=== PATIENT | female | born 1990 | race Caucasian/White ===

== ENCOUNTER 2022-03-03 20:05 | Inpatient (IN) ==
[2022-03-03] MEDS ORDERED: OXYTOCIN 30 UNITS/500 ML BAG IV PRN (22:19)
[2022-03-03] MEDS ORDERED: PENICILLIN G POTASSIUM 6 MU in DEXTROSE 5% 250 ML IV STA (22:19)
[2022-03-03] MEDS: LACTATED RINGER'S 1,000 ML IV PRN ×2 (22:27→23:53)
[2022-03-03] MEDS ORDERED: ePHEDrine sulfate 50 MG/ML AMP ONE (23:12)
[2022-03-03] MEDS ORDERED: fentaNYL citrate 100 MCG/2 ML VIAL ONE (23:12)
[2022-03-03] MEDS ORDERED: BUPIVACAINE 0.25% 30 ML VIAL ONE (23:12)
[2022-03-03] MEDS ORDERED: SODIUM CHLORIDE 0.9% INJ 10 ML VIAL ONE (23:12)
[2022-03-03] MEDS ORDERED: LIDOCAINE 2%/EPINEPHRINE 1:200,000 20 ML SDV ONE (23:12)
[2022-03-03] MEDS ORDERED: fentaNYL 2MCG/ML ROPIVACAINE 1.25MG/ML 100 ML BAG EPI ONE (23:13)
[2022-03-03 23:14] LABS: Hemoglobin 13.9 g/dl (12.0-16.0); Mean Corpuscular Hemoglobin 30.8 pg (25.0-34.0); Mean Corpuscular Hgb Conc 35.6 g/dL (32.0-36.0); Mean Corpuscular Volume 86.5 fL (80.0-100.0); Mean Platelet Volume 14.1 fL (9.4-12.3); Platelet Count 171 K/uL (130-400); Platelet Estimate Normal (Normal); RDW Coefficient of Variation 13.2 % (11.5-14.5); RDW Standard Deviation 41.2 fL (36.4-46.3); Red Blood Count 4.51 M/uL (3.93-5.22); White Blood Count 17.56 K/ul (4.8-10.8)
[2022-03-03] MEDS ORDERED: ONDANSETRON INJ 2 MG/ML 2 ML VIAL IV PRN (23:25)
[2022-03-03] MEDS ORDERED: ePHEDrine sulfate 50 MG/ML AMP IV PRN (23:25)
[2022-03-03] MEDS ORDERED: fentaNYL 2MCG/ML ROPIVACAINE 1.25MG/ML 100 ML BAG EPI PRN (23:25)
[2022-03-03] MEDS ORDERED: NALOXONE HCL 0.4 MG/1 ML VIAL/CARP IV PRN (23:25)
[2022-03-03] MEDS ORDERED: NALOXONE HCL 1 MG in SODIUM CHLORIDE 0.9% 1000ML 1,000 ML IV PRN (23:25)
[2022-03-03] MEDS ORDERED: NALBUPHINE HCL INJ 10 MG/ML AMP IV PRN (23:25)
[2022-03-03] MEDS ORDERED: diphenhydrAMINE 50 MG/ML VIAL IV PRN (23:25)
--- NOTE | 2022-03-03 23:26 | Anesthesiology Consultation ---
Date of Service March 03, 2022 Assessment & Plan (1) Encounter for pre-operative examination: Chart Review Chart Review: Patient NOT seen in Pre Admission Testing and Acceptable Risk for Labor Epidural Consults Requested none History Height/Weight Height: 5 ft 2 in Weight: 67.132 kg Allergies Allergy/AdvReac Type Severity Reaction Status Date / Time No Known Allergies Allergy Verified 02/27/22 13:10 Medications Home Medications Medication Instructions Recorded Confirmed Last Taken prenat.vits,sahil,gnq-[id number] 1 tab PO DAILY 07/16/21 02/27/22 Unknown Active Medications Generic Name Dose Route Start Last Admin Trade Name Freq PRN Reason Stop Dose Admin Lactated Ringer's 1,000 mls @ 125 mls/hr 03/03/22 22:19 03/03/22 22:27 Lr IV 03/05/22 22:18 999 mls/hr .Q8H PRN Administration L&D Protocol Protocol Exercise / Class Metabolic Activity II 4-5 Yardwork/Stairs/Walk up hill Past Family History Family History Sister Thyroid disease Past Surgical History Surgical History S/P tonsillectomy S/P wisdom tooth extraction Past Anesthesia History No Hx of Anesthesia Complications and No Family Hx of Anesthesia Complications History of PONV No Hx of PONV and No Hx of Motion Sickness Social History Smoking Status: Never smoker Hx Alcohol Use: No Hx Substance Use: No Physical Exam Vital Signs Last Vital Signs Pulse 112 H 03/03/22 23:45 Resp 20 03/03/22 20:20 BP 151/91 H 03/03/22 23:43 Pulse Ox 88 L 03/03/22 23:45 Testing Laboratory Results 03/03/22 22:34
--- NOTE | 2022-03-04 01:00 | History & Physical Report ---
Date of Service March 04, 2022 Assessment & Plan (1) Supervision of normal intrauterine in primigravida: Plan: Primigravida in active labor at 40-6/7 weeks. GBS positive-we will begin penicillin prophylaxis. Epidural when requested. Anticipate vaginal . Admission and Anticipated Discharge Date Admission Date: March 03, 2022 History of Present Illness Primary Care Provider: NO PCP Patient is a 31-year-old 1 P0 female with an EDC of 02/26/2022 who presented at 40-6/7 weeks in active labor. Her cervix was 3 cm dilated upon arrival in labor and delivery and she progressed to 5 cm and 100% effaced after walking for 2 hours. She denies any rupture membranes or bloody show. has otherwise been uncomplicated. GBS is positive Allergies Allergy/AdvReac Type Severity Reaction Status Date / Time No Known Allergies Allergy Verified 02/27/22 13:10 Home Medications Medication Instructions Recorded Confirmed Type prenat.vits,sahil,ofe-[id number]-dlxbx 1 tab PO DAILY 07/16/21 02/27/22 History Patient History Surgical History S/P tonsillectomy S/P wisdom tooth extraction Family History Sister Thyroid disease Social History Smoking Status: Never smoker Hx Alcohol Use: No Hx Substance Use: No Preferred Language: Venezuelan Communication Ability: Effective Carton Catcher Required: No Beliefs That Will Affect Care: None marital status: marital status details: Gurpreet (28) [phone] Current Living Situation: Spouse Current Living Situation Comment: lives with spouse, 1 dog. current occupational status: employed current occupation: shipping and handling. Other Information That Helps Us Care for You: No Feels Safe at Home: Yes Safety Concerns: Feels Safe At This Time Review of Systems All systems reviewed & are unremarkable except as noted in HPI & below Physical Exam Constitutional: WD/WN, vitals as above Psychiatric: A+Ox3, euthymic affect Genitourinary: OB Exam Abdomen: + vertex, + estimated weight (7-8 pounds) and + regular contractions (2-4 minutes) Manual OB Exam: + cervical dilation 5 cm, + cervical effacement 100% and + station -1 OB Exam Monitor Tracing: + external FHT monitor used, + external uterine monitor used, + category I and + normal FHT variability Results & Data ([facility]) Vital Signs (Past 12 Hours) Vital Signs Temp Pulse Resp BP Pulse Ox 03/03/22 20:20 20 03/04/22 00:52 98 H 123/80 03/04/22 00:51 95 H 95 03/04/22 00:49 97 H 121/80 94 03/04/22 00:46 84 125/82 94 03/04/22 00:44 80 94 03/04/22 00:43 86 125/85 03/04/22 00:41 81 95 03/04/22 00:40 82 126/84 03/04/22 00:37 82 124/82 94 03/04/22 00:36 91 H 95 03/04/22 00:34 99 H 124/81 03/04/22 00:31 87 121/80 95 03/04/22 00:28 83 03/04/22 00:28 88 123/79 94 03/04/22 00:26 81 95 03/04/22 00:25 81 127/79 03/04/22 00:22 84 120/76 03/04/22 00:21 85 95 03/04/22 00:19 85 126/76 03/04/22 00:16 95 03/04/22 00:16 85 03/04/22 00:16 83 122/73 94 03/04/22 00:13 88 117/68 03/04/22 00:11 83 95 03/04/22 00:10 84 113/64 03/04/22 00:07 82 100/60 94 03/04/22 00:06 81 96 03/04/22 00:04 82 103/62 03/04/22 00:01 83 03/04/22 00:01 81 94/53 L 98 03/03/22 23:58 101 H 03/03/22 23:58 115/72 03/03/22 23:56 99 03/03/22 23:55 95 H 03/03/22 23:56 98 H 03/03/22 23:55 126/77 03/03/22 20:49 97.9 F 03/03/22 23:54 18 03/03/22 23:54 98.6 F 18 03/03/22 23:52 94 H 03/03/22 23:52 132/81 03/03/22 23:51 99 03/03/22 23:51 91 H 03/03/22 23:49 88 03/03/22 23:49 137/84 03/03/22 23:47 81 03/03/22 23:47 134/82 03/03/22 23:46 85 L 03/03/22 23:46 105 H 03/03/22 23:45 88 L 03/03/22 23:45 112 H 03/03/22 23:43 100 H 03/03/22 23:43 151/91 H 03/03/22 23:41 100 03/03/22 23:41 96 H 03/03/22 23:40 78 L 03/03/22 23:40 100 H 03/03/22 23:40 150/93 H 03/03/22 23:37 112 H 03/03/22 23:37 157/95 H 03/03/22 23:36 100 03/03/22 23:36 110 H 03/03/22 20:16 115 H 136/89 Coding Level of Care Code None Diagnoses Supervision of normal intrauterine in primigravida Z34.00
[2022-03-04] MEDS ORDERED: PENICILLIN G POTASSIUM 3 MU in DEXTROSE 5% 100 ML IV PRN (01:19)
[2022-03-04] MEDS ORDERED: bisacodyL 10 MG SUPP PR PRN (04:06)
[2022-03-04] MEDS ORDERED: OXYTOCIN 30 UNITS/500 ML BAG IV PRN (04:06)
[2022-03-04] MEDS ORDERED: oxyCODONE/ACETAMINOPHEN 5mg/325mg TAB PO PRN (04:06)
[2022-03-04] MEDS ORDERED: DIPHTHERIA/TETANUS/PERTUSSIS 0.5 ML SYR/VIAL IM ONE (04:06)
[2022-03-04] MEDS ORDERED: BENZOCAINE 20% AER SPR 82.5 GM CAN EXT PRN (04:06)
[2022-03-04] MEDS ORDERED: ACETAMINOPHEN 325 MG TAB PO PRN (04:06)
[2022-03-04] MEDS ORDERED: HYDROCORTISONE ACETATE 25 MG SUPP PR PRN (04:06)
--- NOTE | 2022-03-04 04:18 | Delivery Summary ---
Vaginal Delivery Summary Date of Service March 04, 2022 Vaginal Delivery Summary and 1st Degree LAC Patient is a 31-year-old G1, P0 female EDC of 02/26/2022 who presented in active labor. She requested epidural analgesia which was effective. She progressed to complete dilation and pushed effectively over intact perineum for delivery of a viable male . The infant was vigorous and crying upon delivery. After 1 minute the cord was clamped and cut. The placenta was expressed intact with a three-vessel cord. A periclitoral laceration and first-degree vaginal laceration were repaired with 3-0 chromic in usual fashion. Estimated blood loss was 200 cc. bleeding was completely controlled with fundal massage and dilute Pitocin. Mother and were doing well after delivery. [facility] [place] Vaginal Delivery Charge Delivery Type Details: and 1st Degree LAC
[2022-03-04] MEDS: IBUPROFEN 600 MG TAB PO PRN ×3 (06:19→21:28)
[2022-03-04] MEDS: DOCUSATE SODIUM 100 MG CAP PO SCH ×2 (07:27→21:28)
[2022-03-04] MEDS: PRENATAL VITAMIN 1 TAB PO SCH (07:27)
--- NOTE | 2022-03-04 07:33 | Anesthesia Procedure Note ---
Date of Service March 04, 2022 Anesthesia Post Epidural Note Vital Signs Vital Signs: Temp Pulse Resp BP Pulse Ox 97.5 F L 98 H 18 128/83 96 03/04/22 06:45 03/04/22 06:45 03/04/22 06:45 03/04/22 06:45 03/04/22 03:51 Notes Mental Status: alert / awake / arousable and participated in evaluation Nausea / Vomiting: adequately controlled Pain: adequately controlled Airway Patency, RR, SpO2: stable & adequate BP & HR: stable & adequate Hydration State: stable & adequate Neuraxial Anesthesia: was administered and sensory block is resolving Anesthetic Complications: no major complications apparent and Pt Satisfied with anesthetic care Epidural: Removed without complications and With tip intact
--- NOTE | 2022-03-05 05:42 | Obstetrical Progress Note ---
Date of Service <Brigitte MendezChidi Humphreys - Last Filed: 03/05/22 06:41> March 05, 2022 Assessment & Plan <Brigitte De Los Santosamnashikha - Last Filed: 03/05/22 06:41> (1) 39 weeks gestation of : Patient is PPD day 1 s/p and doing well. - Feels well today. Eating well, voiding well, ambulating well - No pain this morning - OOB, ambulation, diet progression as tolerated - Plan to discharge tomorrow (GBS +) - After discharge, 6 week follow up with <Arabellaisrael Romero, DO - Last Filed: 03/05/22 07:22> (1) 39 weeks gestation of : Subjective <Brigitte De Los Santossae - Last Filed: 03/05/22 06:41> Terra Souza is a 31 yo female who is now PPD #1 following spontaneous vaginal delivery at 40 weeks. Reports feeling well this morning. No abdominal cramping and no pain. Voiding well. Tolerating meals overnight and able to ambulate some. Has been passing gas but no bowel movements. Some persistent lochia with some improvement this morning. Currently breast feeding. Review of Systems Denies fever, chills, sweats. Denies SOB, difficulty breathing, chest pain, palpitations, and chest pressure. Denies breast pain. Denies dysuria. Denies headache or changes in vision. Physical Exam <Brigitte De Los Santossae - Last Filed: 03/05/22 06:41> General: Alert and oriented. No acute distress. CV: Regular rate and rhythm. No murmurs. Respiratory: CTA bilaterally. No rhonchi, wheezes, or crackles. No increased work of breathing. Abdomen: Positive bowel sounds. Soft, nontender, non distended. Uterus: Fundus firm and palpable 2 cm below the umbilicus. Lower extremities: No LE edema. No deep calf pain. Favian's negative bilaterally. Results & Data ([facility]) <Brigitte MendezChidi Humphreys DO - Last Filed: 03/05/22 06:41> Vital Signs (Past 12 Hours) Vital Signs Temp Pulse Resp BP Pulse Ox O2 Del Method 03/04/22 23:52 36.8 C 80 18 115/81 95 Room Air 03/04/22 20:30 36.6 C 72 18 105/69 98 Room Air <Arabella Romero DO - Last Filed: 03/05/22 07:22> Co-Signing Physician Notes Resident Physician Supervision Note: I was present with Dr. Humphreys during the history and exam. I discussed the case with the resident and agree with the findings and plan as documented in the note. Any exceptions or clarifications are listed here: PPD#1 doing well, continue routine care. Anticipate DC home tomorrow. Documented By: Arabella Romero DO Resident Activity Tracking <Brigitte Humphreys, - Last Filed: 03/05/22 06:41> Resident Involvement: Resident Care Provided Care Provided: OB Delivery
[2022-03-05 08:06] LABS: Hematocrit (blood only) 35.1 % (34.1-44.9); Mean Corpuscular Hemoglobin 30.2 pg (25.0-34.0); Mean Corpuscular Hgb Conc 34.2 g/dL (32.0-36.0); Mean Corpuscular Volume 88.2 fL (80.0-100.0); Platelet Count 155 K/uL (130-400); RDW Coefficient of Variation 13.8 % (11.5-14.5); RDW Standard Deviation 44.3 fL (36.4-46.3); Red Blood Count 3.98 M/uL (3.93-5.22); White Blood Count 16.62 K/ul (4.8-10.8)
[2022-03-05] MEDS: IBUPROFEN 600 MG TAB PO PRN ×3 (08:54→21:29)
[2022-03-05] MEDS: DOCUSATE SODIUM 100 MG CAP PO SCH ×2 (08:55→21:29)
[2022-03-05] MEDS: PRENATAL VITAMIN 1 TAB PO SCH (08:55)
[2022-03-05] MEDS ORDERED: bisacodyL 5 MG TABEC PO SCH (20:00)
--- NOTE | 2022-03-06 06:59 | Obstetrical Progress Note ---
Date of Service <Brigitte Alber Humphreys DO - Last Filed: 03/06/22 06:59> March 06, 2022 Assessment & Plan <Brigitte AndreaChidi DO Petr - Last Filed: 03/06/22 06:59> (1) 39 weeks gestation of : Patient is PPD day 2 s/p and doing well. - Feels well today. Eating well, voiding well, ambulating well - Pain well controlled with ibuprofen 600 mg Q4H PRN - OOB, ambulation, diet progression as tolerated - Plan to discharge today - After discharge, 6 week follow up with <Allen Orona MD - Last Filed: 03/06/22 08:13> (1) 39 weeks gestation of : Subjective <Brigitte Alber Humphreys DO - Last Filed: 03/06/22 06:59> Terra Souza is a 31 yo female who is now PPD #2 following spontaneous vaginal delivery at 40 weeks. Reports feeling well this morning. Endorses abdominal cramping mainly with breast feeding and otherwise no pain. Cramping pain well managed on analgesics. Voiding without issue. Tolerating meals overnight and able to ambulate some. Endorses passing gas but no bowel movements. Some persistent lochia with some improvement this morning. Currently breast feeding. Review of Systems Denies fever, chills, sweats. Denies SOB, difficulty breathing, chest pain, palpitations, and chest pressure. Denies breast pain. Denies dysuria. Denies headache or changes in vision. Physical Exam <Brigitte Humphreys DO - Last Filed: 03/06/22 06:59> General: Alert and oriented. No acute distress. CV: Regular rate and rhythm. No murmurs. Respiratory: CTA bilaterally. No rhonchi, wheezes, or crackles. No increased work of breathing. Abdomen: Positive bowel sounds. Soft, nontender, non distended. Uterus: Fundus firm and palpable 3 cm below the umbilicus. Lower extremities: No LE edema. No deep calf pain. Favian's negative bilaterally. Results & Data ([facility]) <Brigitte Humphreys DO - Last Filed: 03/06/22 06:59> Vital Signs (Past 12 Hours) Vital Signs Temp Pulse Resp BP Pulse Ox O2 Del Method 03/05/22 23:45 36.4 C L 84 18 117/77 98 Room Air 03/05/22 19:35 36.5 C 89 18 117/78 97 Room Air <Allen Orona MD - Last Filed: 03/06/22 08:13> Co-Signing Physician Notes Patient seen and evaluated with resident and agree with the above findings and plan. Stable for discharge Resident Activity Tracking <Brigitte Humphreys DO - Last Filed: 03/06/22 06:59> Resident Involvement: Resident Care Provided Care Provided: OB Delivery
[2022-03-06 07:06] LABS: Hematocrit (blood only) 34.4 % (34.1-44.9); Hemoglobin 11.7 g/dl (12.0-16.0)
[2022-03-06] MEDS: PRENATAL VITAMIN 1 TAB PO SCH (07:44)
[2022-03-06] MEDS: IBUPROFEN 600 MG TAB PO PRN (07:44)
[2022-03-06] MEDS: DOCUSATE SODIUM 100 MG CAP PO SCH (07:44)
== END 2022-03-06 12:10 | disposition home or self-care (01) | DRG 807 ==
LOC: OPB 20:05 → 4S1 20:09 → 4E2 03-04 06:55

== ENCOUNTER 2023-12-10 06:14 | Inpatient (IN) ==
--- NOTE | 2023-12-10 06:35 | History & Physical Report ---
Date of Service December 10, 2023 Assessment & Plan (1) Normal labor: Plan admit, iv, plan arom and likely imminent delivery. fhts categ 1. History of Present Illness Chief Complaint: labor Primary Care Provider: NO PCP 33yo at 40+wks egjay presents to L&D with active labor. No rom. Regular ctx. Cx exam per nurse complete, with bulging membranes. PNC c/b 1. GBS pos 2. MMR pp PNL rh pos, needs mmr, gbs pos OBH: x 1 GYNH: nl paps no stds Allergies Allergy/AdvReac Type Severity Reaction Status Date / Time No Known Allergies Allergy Verified 12/03/23 09:18 Home Medications Medication Instructions Recorded Confirmed Type prenat.vits,sahil,lnm-fmew-wsdgv 1 tab PO DAILY 07/16/21 12/03/23 History Patient History Medical History (Updated 12/10/23 @ 06:34 by Jaylin Yeung MD, FACOG) History of chicken pox Group B streptococcal infection during Surgical History S/P wisdom tooth extraction S/P tonsillectomy Family History (Updated 04/22/23 @ 10:48 by Rahel Sotomayor) Sister Thyroid disease Denies family history of Ovarian cancer Breast cancer Colorectal cancer Social History (Updated 04/22/23 @ 10:49 by Rahel Sotomayor) Smoking Status: Never smoker Do You Dip or Chew Tobacco: No; Hx Alcohol Use: No Hx Substance Use: No Preferred Language: Slovak Communication Ability: Effective Shake Feeder Required: No Beliefs That Will Affect Care: None marital status: marital status details: Gurpreet Souza(29) [phone] Current Living Situation: Spouse and Family Current Living Situation Comment: lives with spouse, child, 1 dog. current occupational status: unemployed current occupation: homemaker Feels Safe at Home: Yes Review of Systems as per Subjective / HPI Physical Exam 2 Constitutional: WD/WN, vitals as above Gastrointestinal (Abdomen): soft gravid nt Musculoskeletal: no edema Neurologic: grossly normal Psychiatric: A+Ox3, euthymic affect Genitourinary: Manual OB Exam: + cervical dilation (per nurse) 10 cm OB Exam Monitor Tracing: + external FHT monitor used, + external uterine monitor used (q2), + category I, + normal FHT variability and + early decelerations present Results & Data Vital Signs (Past 12 Hours) Vital Signs Pulse BP 12/10/23 06:30 83 119/61 Coding Level of Care Code None Diagnoses Normal labor O80; Z37.9
[2023-12-10] MEDS: LIDOCAINE 1% LOCAL 20 ML VIAL ONE (06:46)
[2023-12-10] MEDS: OXYTOCIN 30 UNITS/NSS 30 UNITS/500 ML BAG IV PRN (06:48)
[2023-12-10] MEDS ORDERED: LIDOCAINE 1% LOCAL 20 ML VIAL INFIL PRN (06:54)
[2023-12-10] MEDS ORDERED: bisacodyL 10 MG SUPP PR PRN (07:00)
[2023-12-10] MEDS ORDERED: IBUPROFEN 600 MG TAB PO PRN (07:00)
[2023-12-10] MEDS ORDERED: ACETAMINOPHEN 325 MG TAB PO PRN (07:00)
[2023-12-10] MEDS ORDERED: oxyCODONE/ACETAMINOPHEN 5mg/325mg TAB PO PRN (07:00)
[2023-12-10] MEDS ORDERED: HYDROCORTISONE ACETATE 25 MG SUPP PR PRN (07:00)
[2023-12-10] MEDS ORDERED: MEASLES, MUMPS & RUBELLA VIRUS VACCINE (MMR) 0.5ML VIAL SQ ONE (07:00)
[2023-12-10] MEDS ORDERED: OXYTOCIN 30 UNITS/NSS 30 UNITS/500 ML BAG IV PRN (07:00)
--- NOTE | 2023-12-10 07:01 | Delivery Summary ---
Vaginal Delivery Summary Date of Service December 10, 2023 Vaginal Delivery Summary The patient underwent arom for meconium stained fluid and was completely dilated. She pushed to deliver a viable male Apgars 8 and 9 via over intact perineum. Nuchal cord noted and delivered through. Shoulders and body delivered with ease. Mouth and nose bulb suctioned.Infant was vigorous and crying at . Cord clamped at 30 seconds of life and infant to maternal abdomen where the cord was then doubly clamped and cut. Placenta delivered spontaneously and intact, three-vessel cord. Hemostasis achieved with dilute pitocin and uterine massage. Small periurethral laceration was bleeding and after 1% local lidocaine and placement of catheter to ensure location of urethra, a single figure of eight suture of 4-0 vicryl was placed for excellent hemostasis. The bladder was drained for approximately 20 cc under sterile conditions. Cervix and sulci intact. QBL 50cc. Mother and baby stable in recovery. [facility] Vaginal Delivery Charge Delivery Type Details: [facility]
[2023-12-10 07:43] LABS: Hematocrit (blood only) 34.8 % (37.0-47.0); Hemoglobin 11.4 g/dl (12.0-16.0); Mean Corpuscular Hemoglobin 26.8 pg (25.0-34.0); Mean Corpuscular Hgb Conc 32.8 g/dL (32.0-36.0); Mean Corpuscular Volume 81.7 fL (80.0-100.0); Platelet Count 196 K/uL (130-400); RDW Coefficient of Variation 14.8 % (11.5-14.5); RDW Standard Deviation 43.2 fL (36.4-46.3); Red Blood Count 4.26 M/uL (4.20-5.40); White Blood Count 18.77 K/ul (4.8-10.8)
[2023-12-10] MEDS: DIPHTHER/TETAN/PERTUS Vaccine (Tdap, Adol/Adult) 0.5mL IM ONE (07:50)
[2023-12-10] MEDS: OXYTOCIN 30 UNITS/500ML NSS IV ONE (07:50)
[2023-12-10] MEDS: DOCUSATE SODIUM 100 MG CAP PO SCH (08:51)
[2023-12-10] MEDS: PRENATAL VITAMIN 1 TAB PO SCH (08:51)
[2023-12-10] MEDS: BENZOCAINE 20% SPRY 85 APPLN/85 GM CAN EXT PRN (09:29)
[2023-12-10] MEDS: OXYTOCIN 20 UNITS/LR 1,002 ML IV SCH (09:29)
--- NOTE | 2023-12-11 06:34 | Obstetrical Progress Note ---
Date of Service December 11, 2023 Assessment & Plan (1) care following vaginal delivery: Plan: Doing well Routine post care dc today Admission and Anticipated Discharge Date Admission Date: December 10, 2023 Supervising Physician Co-Signing Physician Notes Resident Physician Supervision Note: I interviewed and examined the patient. Discussed with Dr. Conklin and agree with findings and plan as documented in the note. Any exceptions or clarifications are listed here: PP1 s/p , doing well. VSS, exam benign and wnl. Desires dc home Documented By: Nadia Villa MD Subjective 33 yo post day 1 s/p Ambulation: ambulating normally Voiding: no voiding problems Passing Gas:: Yes Diet Tolerance:: regular diet Lochia:: Small Feeding Type:: breast feeding Current Pain Level: minimal Resting comfortably this AM in NAD. Denies CARDONA, CP, SOB, N/V/D, LE pain/swelling. Desires dc today Review of Systems Review of Systems: reviewed, per HPI Physical Exam Physical Exam: General: patient resting comfortably, NAD, non-toxic in appearance, answers questions appropriately. Skin: warm, dry, intact HEENT: NC/AT, anicteric sclera, conjunctiva without injection, moist mucus membranes. Heart: +S1/S2, regular, no m/r/g Lungs: equal air entry bilaterally, no rales/rhonchi/wheezes Abd: +BS, soft, NT/ND, uterine fundus firm at umbilicus. Ext: warm, no clubbing/cyanosis or edema, Favian's neg. Neuro: nonfocal, speech intact, no facial droop, moving all extremities on command. Results & Data Vital Signs (Past 12 Hours) Vital Signs Temp Pulse Resp BP Pulse Ox O2 Del Method 12/11/23 05:01 36.5 C 69 18 112/73 97 Room Air 12/10/23 22:57 36.7 C 89 18 117/77 96 Room Air 12/10/23 19:30 36.4 C L 91 H 16 122/82 96 Room Air Resident Activity Tracking Resident Involvement: Resident Care Provided Care Provided: Adult Hospital Medicine
[2023-12-11 08:03] VITALS: BP 113/76; RESP 17; TEMP 97.5; O2SAT 96
[2023-12-11 17:00] VITALS: PULSE 69
== END 2023-12-11 15:40 | disposition home or self-care (01) | DRG 807 ==
LOC: OPB 06:14 → 4S1 06:16 → 4E2 09:45